=== PATIENT | female | born 1995 | race Asian ===

== ENCOUNTER 2022-11-26 14:16 | Inpatient (IN) ==
[2022-11-26] MEDS ORDERED: Lactated Ringers 1000 ml BAG 1,000 ML IV ONE ×2 (15:42→17:59)
[2022-11-26] MEDS ORDERED: Buffered Lidocaine 1% SYRIN 1 ml INTRADERM ONE (15:42)
[2022-11-26] MEDS ORDERED: Promethazine INJ(RESTRICTED) 25 MG/ML 1 ml VIAL IV PRN (15:42)
[2022-11-26] MEDS ORDERED: Lidocaine 1% VIAL 10 MG/ML 30 ML VIAL INJ PRN (15:42)
[2022-11-26] MEDS ORDERED: Lactated Ringers 1000 ml BAG 1,000 ML IV SCH ×2 (16:00→18:00)
[2022-11-26 16:46] LABS: ABS Basophils 0.1 10^3/uL (0.0-0.1); ABS Eosinophils 0.1 10^3/uL (0.0-0.5); ABS Lymphocytes 1.3 10^3/uL (1.0-4.8); ABS Monocytes 0.7 10^3/uL (0.0-0.9); ABS Neutrophils 7.1 10^3/uL (1.5-7.6); ABS Nucleated RBC 0.01 10^3/ul; Eosinophil % 0.8 %; Hematocrit 35.3 % (35-45); Hemoglobin 12.1 g/dL (11.5-14.3); Lymphocyte % 13.8 %; Mean Corpuscular Hemoglobin 26.8 pg (27-33); Mean Corpuscular Hgb Conc 34.3 g/dL (31-36); Mean Corpuscular Volume 78.2 fL (80-97); Mean Platelet Volume 8.3 fL (7.5-11.2); Nucleated Red Blood Cells % 0.1 /100 WBC (0.0-0.4); Platelet Count 345 10^3/uL (150-450); Red Blood Count 4.51 10^6/uL (3.63-4.92); Red Cell Distribution Width 14.5 % (12-17); White Blood Count 9.3 10^3/uL (3.8-11.8)
[2022-11-26] MEDS ORDERED: Lidocaine 1.5% EPI 1:200,000 30 ML SDV ONE ×2 (17:05→17:25)
[2022-11-26 17:45] LABS: Urine Benzodiazepine Screen None Detected (None Detect); Urine Opiates Screen None Detected (None Detect)
[2022-11-26] MEDS: OBEPIDURAL (200 ML) 200 ML EPIDURAL ONE ×2 (17:48→18:18)
[2022-11-26] MEDS ORDERED: Lactated Ringers 1000 ml BAG 500 ML IV PRN ×2 (17:59)
[2022-11-26] MEDS ORDERED: Phenylephrine 40 mcg/mL 10mL (400mcg) SYRINGE IV PUSH PRN (17:59)
[2022-11-26] MEDS ORDERED: Sodium Citrate/Citric Acid LIQ 15 ML UDC PO PRN (17:59)
[2022-11-26] MEDS ORDERED: OBEPIDURAL (200 ML) 200 ML EPIDURAL SCH (18:00)
[2022-11-26 18:46] LABS: Urine Appearance Clear; Urine Bilirubin Negative (Negative); Urine Blood Negative (Negative); Urine Color Yellow; Urine Glucose Negative (Negative); Urine Ketones Negative (Negative); Urine Nitrite Negative (Negative); Urine Protein Negative (Negative); Urine Specific Gravity 1.005 (1.002-1.030); Urine Urobilinogen Negative (Negative)
[2022-11-26] MEDS: Phenylephrine 40 mcg/mL 10mL (400mcg) SYRINGE IV PUSH PRN (19:40)
[2022-11-26] MEDS ORDERED: Oxytocin in LR 20,000 MILLI.UNIT/1,000 ML BAG IV SCH (21:45)
[2022-11-27] MEDS: Phenylephrine 40 mcg/mL 10mL (400mcg) SYRINGE IV PUSH PRN (00:03)
[2022-11-27] MEDS ORDERED: Glycerin ADULT 2.4 gm SUPP PR PRN (00:56)
[2022-11-27] MEDS ORDERED: Oxytocin 10 UNITS/ML 1 ML VIAL IM PRN (00:56)
[2022-11-27] MEDS ORDERED: Witch Hazel PAD JAR TOPICAL PRN (00:56)
[2022-11-27] MEDS ORDERED: Dibucaine 1% OINT 28.35 GM TUBE PR PRN (00:56)
[2022-11-27] MEDS ORDERED: Lactated Ringers 1000 ml BAG 1,000 ML IV SCH (01:00)
[2022-11-27] MEDS ORDERED: Lidocaine PATCH 5% PATCH TRANSDERM SCH (16:00)
[2022-11-28 09:05] LABS: ABS Basophils 0.1 10^3/uL (0.0-0.1); ABS Eosinophils 0.1 10^3/uL (0.0-0.5); ABS Lymphocytes 1.4 10^3/uL (1.0-4.8); ABS Monocytes 0.7 10^3/uL (0.0-0.9); ABS Neutrophils 7.2 10^3/uL (1.5-7.6); Eosinophil % 1.3 %; Hematocrit 35.6 % (35-45); Lymphocyte % 14.6 %; Mean Corpuscular Hemoglobin 26.7 pg (27-33); Mean Corpuscular Hgb Conc 33.5 g/dL (31-36); Mean Corpuscular Volume 79.6 fL (80-97); Mean Platelet Volume 7.9 fL (7.5-11.2); Platelet Count 303 10^3/uL (150-450); Red Blood Count 4.48 10^6/uL (3.63-4.92); White Blood Count 9.4 10^3/uL (3.8-11.8)
[2022-11-28 19:29] VITALS: BP 95/62
== END 2022-11-28 19:50 | disposition home or self-care (01) | DRG 560 ==
LOC: MCHOBOUT 14:16 → MCHOB 15:41
PROVIDERS: ADMIT Registered Nurse; ATTEND Registered Nurse